=== PATIENT | female | born 1985 ===

== ENCOUNTER 2017-04-18 10:53 | Emergency (ER) | payer SELFPAY ==
[~2017-04-18] VITALS: Ht 160 cm; Wt 78.0 kg
[2017-04-18 11:00] VITALS: Ht 160 cm; Wt 78.0 kg
[2017-04-18] MEDS ORDERED: OLANZAPINE (ODT) 5 MG TAB ODT ONE (11:30)
--- NOTE | 2017-04-18 11:47 | PSY ---
Date/Time of Note Date/Time of Note DATE: 04/18/17 TIME: 11:38 Psychiatric Subjective Eval Consent Pt consented to telemedicine: Yes Subjective Evaluation Patient location: emergency Chief Complaint: ALOC FOUND AT A [employer]OB[employer] W[employer]ER TENDER Assessment Additional comments: IDENTIFYING INFORMATION: 29 year old Female patient who is currently located at the hospital and for whom psychiatric consultation was requested. SOURCES OF INFORMATION: The patient who appears to be unreliable and the medical records; the nursing staff. CHIEF COMPLAINT: "I am a 90-degree concetta". HISTORY OF PRESENT ILLNESS: The patient was interviewed via telemedicine in the presence of and under the supervision of nursing staff of the hospital. The consent to conducting this interview via telemedicine was obtained by the nursing staff at the hospital. Dr. Montgomery reports that the patient with delusions reporting that she lives with an [employer] leader who is keeping her hostage. 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 She reports that she has not used any shampoo for a long time and is a data analyst report writer. She reports that they gave her metabolic syndrome on purpose. The patient is not able to participate in the interview appropriately at this time due to psychosis. PAST MEDICAL HISTORY: Unable to assess, because the patient was not able to participate in the interview.. CURRENT MEDICATIONS: Unable to assess, because the patient was not able to participate in the interview.. ALLERGIES TO MEDICATIONS: rochephyn. SOCIAL HISTORY: Unable to assess, because the patient was not able to participate in the interview. LABORATORY TESTS: pending. FAMILY HISTORY: Unable to assess, because the patient was not able to participate in the interview. REVIEW OF SYSTEMS: Unable to assess, because the patient was not able to participate in the interview. MENTAL STATUS EXAMINATION: General Appearance and Behavior: Agitated, appears to be responding to internal stimuli, uncooperative with most of the interview, distant with the current interviewer, makes poor eye contact, poorly groomed, increased psychomotor activity, no abnormal movements noted. Speech: increased rate, regular rhythm, decreased latency, high volume, increased amount. Flow of thought: tangential, illogical, not goal-directed. Content of thought: appears to be responding to internal stimuli , but did not respond to questions regarding auditory or visual hallucinations, positive for paranoid delusions, the patient was not able to answer questions regarding suicidal or homicidal ideation. Mood: "OK". Affect: agitated, angry, flat, decreased range of reactivity. Attention: normal based on the interview. Insight: poor. Judgment: poor. Memory: normal based on the interview. Sensorium: alert, not able to provide her own name at this time.. ASSESSMENT: The patient's presentation and history are consistent with the diagnosis of unspecified psychotic disorder. The patient presents with an exacerbation of psychosis. Lincoln I: unspecified psychotic disorder. Lincoln II: Deferred. Lincoln III: see PMH. Lincoln IV: social stressors. Lincoln V: GAF: 10. PLAN: - Medication management: Would start Zyprexa 5 mg by mouth twice a day ( the patient already received one dose of Zyprexa 5 mg by mouth at 11:30 AM while at the emergency room). Would start haloperidol 5 mg IM PRN severe agitation q4 hours. Would start lorazepam 2 mg IM PRN severe agitation q4 hours Will defer to the inpatient psychiatry team for other medication changes. - Labs: please check CBC, CMP, alcohol level, UDS. - Psychotherapy: Provided supportive psychotherapy and psychoeducation. - Disposition: Would recommend involuntary admission to the inpatient psychiatric unit given the severity of the patient's psychiatric condition and the fact that the patient is an imminent danger to self and/or others so long as the patient has been cleared medically for admission to psychiatry. Inpatient psychiatric admission is at this time the least restrictive environment where the patient can receive the psychiatric care that is needed. Would place on suicide precautions. The patient fulfills criteria for being placed on involuntary hold due to being gravely disabled. Discussed about the above plan with Dr. Montgomery. YAZMIN DE LA CRUZ MD Apr 18, 2017 11:47
[2017-04-18 12:12] LABS: BASOPHIL # 0.1 10^3/ul (0.0-0.1); BASOPHILS % 0.5 % (0.0-2.0); EOSINOPHILS # 0.2 10^3/ul (0.0-0.5); EOSINOPHILS % 1.6 % (0.0-7.0); HEMATOCRIT 38.7 % (37.0-47.0); HEMOGLOBIN 11.9 g/dl (12.0-16.0); LYMPHOCYTES # 2.9 10^3/ul (0.8-2.9); LYMPHOCYTES % 22.2 % (15.0-51.0); MEAN CORPUSCULAR HEMOGLOBIN 25.4 pg (29.0-33.0); MEAN CORPUSCULAR HGB CONC 30.7 g/dl (32.0-37.0); MEAN CORPUSCULAR VOLUME 82.5 fl (82.0-101.0); MEAN PLATELET VOLUME 9.9 fl (7.4-10.4); MONOCYTE # 0.7 10^3/ul (0.3-0.9); MONOCYTES % 5.6 % (0.0-11.0); NEUTROPHIL # 8.9 10^3/ul (1.6-7.5); NEUTROPHILS % 69.7 % (39.0-77.0); PLATELET COUNT 414 10^3/UL (140-415); RED BLOOD COUNT 4.69 10^6/ul (4.20-5.40); RED CELL DISTRIBUTION WIDTH 15.4 % (11.5-14.5); WHITE BLOOD COUNT 12.8 10^3/ul (4.8-10.8)
[2017-04-18 12:35] LABS: ALANINE AMINOTRANSFERASE 31 IU/L (13-69); ALBUMIN 4.6 g/dl (3.3-4.9); ALKALINE PHOSPHATASE 91 IU/L (42-121); ANION GAP 19 (8-16); ASPARTATE AMINO TRANSFERASE 33 IU/L (15-46); BILIRUBIN,INDIRECT 0.2 mg/dl (0-1.1); BILIRUBIN,TOTAL 0.2 mg/dl (0.2-1.3); BLOOD UREA NITROGEN 9 mg/dl (7-20); CALCIUM 9.7 mg/dl (8.4-10.2); CARBON DIOXIDE 24 mmol/L (21-31); CHLORIDE 105 mmol/L (97-110); CREATININE 0.85 mg/dl (0.44-1.00); GLUCOSE 81 mg/dl (70-220); POTASSIUM 3.4 mmol/L (3.5-5.1); SODIUM 145 mmol/L (135-144); TOTAL PROTEIN 7.3 g/dl (6.1-8.1)
[2017-04-18 12:38] LABS: ACETAMINOPHEN < 10.0 ug/ml (10.0-30.0); ETHANOL < 10.0 mg/dl; SALICYLATE < 1.0 mg/dl (5.0-30.0)
[2017-04-18 13:18] LABS: ADD UMIC NO; UR ASCORBIC ACID NEGATIVE (NEGATIVE); UR BILIRUBIN (Dip) NEGATIVE (NEGATIVE); UR BLOOD (Dip) NEGATIVE (NEGATIVE); UR CLARITY CLEAR (CLEAR); UR COLOR YELLOW (YELLOW); UR GLUCOSE (Dip) NEGATIVE (NEGATIVE); UR KETONES (Dip) NEGATIVE (NEGATIVE); UR LEUKOCYTE ESTERASE (Dip) NEGATIVE Leu/ul (NEGATIVE); UR NITRITE (Dip) NEGATIVE (NEGATIVE); UR TOTAL PROTEIN (Dip) NEGATIVE (NEGATIVE); UR UROBILINOGEN (Dip) NEGATIVE (NEGATIVE)
--- NOTE | 2017-04-18 13:29 | ERA ---
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 Please note the history and physical exam is limited secondary to the patient's mental status given her psychiatric presentation. She was brought in by ambulance and police. She is having delusions and says "I am being tortured by the [employer]". She also says "I am living in an [facility] drug cartel's home". She is not able to give us her name and therefore I am not able to review old records. ROS All systems reviewed and are negative except as per history of present illness. PMhx/Soc Medical and Surgical Hx: Unable to obtain Smoking Status: Unknown if ever smoked FmHx Unable to obtain Physical Exam Vitals Vital Signs Date Time Temp Pulse Resp B/P Pulse Ox O2 Delivery O2 Flow Rate FiO2 04/18/17 11:00 98.0 75 18 137/78 100 Physical Exam Const: Delusions Head: Atraumatic Eyes: Normal Conjunctiva ENT: Normal External Ears, Nose and Mouth. Neck: Full range of motion..~ No meningismus. Resp: Clear to auscultation bilaterally Cardio: Regular rate and rhythm, no murmurs Abd: Soft, non tender, non distended. Normal bowel sounds Skin: No petechiae or rashes Back: No midline or flank tenderness Ext: No cyanosis, or edema Neur: Awake and moves all 4 extremities Psych: Delusions and hallucinations Result Diagram: 04/18/17 1155 04/18/17 1155 Results 24 hrs Laboratory Tests Test 04/18/17 11:55 04/18/17 12:40 White Blood Count 12.810^3/ul Red Blood Count 4.6910^6/ul Hemoglobin 11.9g/dl Hematocrit 38.7% Mean Corpuscular Volume 82.5fl Mean Corpuscular Hemoglobin 25.4pg Mean Corpuscular Hemoglobin Concent 30.7g/dl Red Cell Distribution Width 15.4% Platelet Count 46851^3/UL Mean Platelet Volume 9.9fl Neutrophils % 69.7% Lymphocytes % 22.2% Monocytes % 5.6% Eosinophils % 1.6% Basophils % 0.5% Nucleated Red Blood Cells % 0.0/100WBC Neutrophils # 8.910^3/ul Lymphocytes # 2.910^3/ul Monocytes # 0.710^3/ul Eosinophils # 0.210^3/ul Basophils # 0.110^3/ul Nucleated Red Blood Cells # 0.010^3/ul Sodium Level 145mmol/L Potassium Level 3.4mmol/L Chloride Level 105mmol/L Carbon Dioxide Level 24mmol/L Anion Gap 19 Blood Urea Nitrogen 9mg/dl Creatinine 0.85mg/dl Glucose Level 81mg/dl Calcium Level 9.7mg/dl Total Bilirubin 0.2mg/dl Direct Bilirubin 0.00mg/dl Indirect Bilirubin 0.2mg/dl Aspartate Amino Transf (AST/SGOT) 33IU/L Alanine Aminotransferase (ALT/SGPT) 31IU/L Alkaline Phosphatase 91IU/L Total Protein 7.3g/dl Albumin 4.6g/dl Globulin 2.70g/dl Albumin/Globulin Ratio 1.70 Salicylates Level < 1.0mg/dl Acetaminophen Level < 10.0ug/ml Ethyl Alcohol Level < 10.0mg/dl Urine Color YELLOW Urine Clarity CLEAR Urine pH 6.0 Urine Specific [place] 1.010 Urine Ketones NEGATIVEmg/dL Urine Nitrite NEGATIVEmg/dL Urine Bilirubin NEGATIVEmg/dL Urine Urobilinogen NEGATIVEmg/dL Urine Leukocyte Esterase NEGATIVELeu/ul Urine Hemoglobin NEGATIVEmg/dL Urine Glucose NEGATIVEmg/dL Urine Total Protein NEGATIVEmg/dl Current Medications Medications (Trade) Dose Ordered Sig/Sarah Route PRN Reason Start Time Stop Time Status Last Admin Dose Admin Olanzapine (Zyprexa Zydis) 5 mg ONCE ONCE ODT 04/18/17 11:30 04/18/17 11:31 DC 04/18/17 11:23 Olanzapine (Zyprexa Zydis) 5 mg BID ODT 04/18/17 21:00 UNV Procedures/MDM Smoking Cessation Therapy: Pt. was lectured for greater than 3 minutes on the health risks of continued smoking and the benefits of cessation. Patient is a 29-year-old female who presents with acute psychosis. She was given Zyprexa. She was recommended a 5150 hold by psychiatry. I have ordered Zyprexa twice daily while she is still in the emergency department. She is now medically clear. She will need transfer to a psychiatric facility for higher level of care as we do not have a psychiatric facility here at [facility]. She is medically clear. Departure Diagnosis: Primary Impression: Psychosis Qualified Code: F29 - Psychosis, unspecified psychosis type Condition: MATIAS Baker MD Apr 18, 2017 13:28
[2017-04-18 13:37] LABS: BARBITURATES Negative (NEGATIVE); BENZODIAZEPINES Negative (NEGATIVE); CANNABINOIDS Negative (NEGATIVE); COCAINE Negative (NEGATIVE); OPIATES Negative (NEGATIVE)
[2017-04-18] MEDS ORDERED: HALOPERIDOL 5 MG INJ ONE (13:50)
[2017-04-18] MEDS ORDERED: LORAZEPAM 2 MG INJ ONE (13:51)
[2017-04-18] MEDS ORDERED: HALOPERIDOL 5 MG INJ IM ONE (14:00)
[2017-04-18] MEDS ORDERED: LORAZEPAM 2 MG INJ IM ONE (14:00)
[2017-04-18] MEDS ORDERED: OLANZAPINE (ODT) 5 MG TAB ODT SCH (21:00)
[2017-04-19 00:10] VITALS: TEMP 98
[2017-04-19 08:19] VITALS: BP 122/61; PULSE 78; RESP 16
== END 2017-04-19 08:20 | disposition short-term general hospital (02) ==
LOC: EDBD 10:53 → E/R 10:53
DX: F29 Unspecified psychosis not due to a substance or known physiological condition (principal); R40.2142 Coma scale, eyes open, spontaneous, at arrival to emergency department; R40.2362 Coma scale, best motor response, obeys commands, at arrival to emergency department; R40.2232 Coma scale, best verbal response, inappropriate words, at arrival to emergency department
CPT/HCPCS: 80053; 80306; 80307; 81003; 85025; J1630; J2060; 36415; 96372